=== PATIENT | female | born 1995 | race Caucasian/White ===

== ENCOUNTER 2019-11-28 19:49 | Emergency (ER) | payer OTHER, MEDICAID ==
[~2019-11-28] VITALS: Ht 162.6 cm; Wt 95.7 kg
[2019-11-28 22:37] VITALS: BP 112/68
== END 2019-11-28 22:34 | disposition home or self-care (01) ==
LOC: ED 19:49
DX: S00.83XA Contusion of other part of head, initial encounter (principal); S20.212A Contusion of left front wall of thorax, initial encounter; S30.1XXA Contusion of abdominal wall, initial encounter; Z88.1 Allergy status to other antibiotic agents; Z88.2 Allergy status to sulfonamides; V43.02XA Car driver injured in collision with other type car in nontraffic accident, initial encounter; Y93.I9 Activity, other involving external motion; Y92.413 State road as the place of occurrence of the external cause; Y99.8 Other external cause status